=== PATIENT | female | born 1990 | race Caucasian/White ===

== ENCOUNTER 2023-12-26 23:50 | Outpatient (CLI) | payer BC ==
[~2023-12-26] VITALS: Ht 167.6 cm; Wt 77.3 kg
[~2023-12-26 23:50] MED LIST: NO HOME MEDICATIONS
--- NOTE | 2023-12-27 00:01 | NUR ---
PT PRESENTS TO L&D WITH C/O FEELING PANTIES WET WHILE SHE WAS SITTING ON COUCH. WENT TO BR AND FELT A TRICKLE DOWN HER LEG. SHE VOIDED AT THAT TIME. SHE HAD NOT FELT ANY SINCE THEN AND HER PANTIES ARE NOT WET NOW. PT TO BED. MONITORS ON , CATEGORY 1. AT THIS TIME NO CTX'S NOTED. NITRAZINE X 2 WERE BOTH NEGATIVE. UPON HAVING PT COUGH FOR THE NITRAZINE TEST URINE WAS NOTED TO COME FROM THE [facility]. PT DENIES FEELING CTX'S OR HAVING BLEEDING. ASSESSMENTS COMPLETED.
[2023-12-27 00:28] VITALS: BP 109/71; PULSE 101; TEMP 98.6
[2023-12-27] MEDS ORDERED: PRENATAL ESSEN1 EACH PO (00:34)
== END 2023-12-27 00:50 | disposition home or self-care (01) ==
LOC: LDRO 23:50 → LDR 12-27 00:01 → LDRO 12-27 00:50
DX: O42.913 Preterm premature rupture of membranes, unspecified as to length of time between rupture and onset of labor, third trimester (principal); Z3A.36 36 weeks gestation of pregnancy
CPT/HCPCS: OP